=== PATIENT | female | born 1940 | race Caucasian/White ===

== ENCOUNTER → 2016-07-26 16:30 | Outpatient (CLI) | payer MEDICARE, OTHER ==
[2013-10-15 09:56] VITALS: BMI 31.5
[~2016-07-26 16:30] MED LIST: ALEVE220 MG PO; BAYER CHEWABLE81 MG PO; CO Q-10100 MG PO; COREG6.25 MG PO; FISH OIL 1,0001 CA1 PO; FLAXSEED OIL1000 MG PO; GARLIC1 CAP PO; MOBIC7.5 MG PO; MULTI-DAY VITAM1 TAB PO; PEPCID40 MG PO; PRAVACHOL40 MG PO
== END | disposition home or self-care (01) ==
LOC: D.MAMMO 09:30
DX: R92.8 Other abnormal and inconclusive findings on diagnostic imaging of breast (principal)

== ENCOUNTER 2017-09-30 10:58 | Outpatient (CLI) | payer MEDICARE, OTHER ==
[~2017-09-30] VITALS: Ht 167.6 cm; Wt 97.7 kg
--- NOTE | ~2017-09-30 | HEMODYNAMI ---
PATIENT:BRIANA LARA MEDICAL RECORD: [id number] : 40 LOCATION:D.CAT ADMISSION DATE: 09/30/17 Generatedon:09/30/201713:38 Patient name: BRIANA LARA Patient #: [id number] SSN: : 1940 Date of study: 09/30/2017 Page: Of Hemodynamic Procedure Report Patient Data Patient Demographics Procedure consent was obtained First Name: BRIANA Gender: Female Last Name: MARCO : 1940 [facility] Initial: SHAI Age: 76 year(s) Patient #: [id number] Race: Unknown Additional ID: [id number] Contact details Address: [address] [place] [address] DRIVE State: [place] City: [place] Zip code: [address] Past Medical History Allergies: No known allergies Admission Admission Data Admission Date: 09/30/2017 Admission Time: 10:58 Lab Results Lab Result Date: 09/30/2017 Lab Result Time: 0:00 Biochemistry Name Units Result Min Max BUN mg/dl 17 --(---*)-- 7 18 Creatinine mg/dl 0.9 --(-*--)-- 0.6 1.3 CBC Name Units Result Min Max Hemoglobin g/dl 14.1 --(*---)-- 13.5 17.5 Procedure Procedure Types Cath Procedure Diagnostic Procedure [facility] w/Coronaries Aortic Root Angiography Sedation Charges Moderate Sedation up to 15 minutes Procedure Description Procedure Date Procedure Date: 09/30/2017 Procedure Start Time: 13:14 Procedure End Time: 13:37 Procedure Staff Name Function Aníbal Akbar MD Performing Physician Juliette Nichols RT Monitor Blanco Thomas RN Nurse Ashish Galeano RT Scrub Devan Herman RN Lead Oxide Mill Tender Procedure Data Cath Procedure Fluoroscopy Diagnostic fluoroscopy Total fluoroscopy Time: 4 time: 4 min min Diagnostic fluoroscopy Total fluoroscopy dose: dose: 1120 mGy 1120 mGy Contrast Material Contrast Material Type Amount (ml) Isovue 300 134 Entry Location Entry Primary Successful Side Size Upsize Upsize Entry Closure Ramos ccessful Closure Location (Fr) 1 (Fr) 2 (Fr) Remarks Device Remarks Radial Right 6 Fr Mechanical artery Short Compression Estimated blood loss: 5 ml Diagnostic catheters Device Type Used For End Catheter Placement DIAGNOSTIC Hickman 110cm 5 Procedure Fr catheter ([id number]) DIAGNOSTIC Pigtail 5Fr Procedure catheter ([id number]) Procedure Complications No complications Procedure Medications Medication Administration Route Dosage 0.9% NaCl I.V. 100 ml/hr Oxygen etCO2 Nasal cannula 2 l/min Heparin Flush Bag added to field 2 bags (1000units/500ml NS) Lidocaine 2% added to field 20 Radial Cocktail added to field 1 syringe (Verapomil 2mg/Nitro 400mcg/Heparin 1500units) Versed I.V. 1 mg Fentanyl I.V. 50 mcg Radial Cocktail I.A. 1 syringe (Verapomil 2mg/Nitro 400mcg/Heparin 1500units) Hemodynamics Rest HGB: 14.1 (g/dl) Heart Rate: 47 (bpm) Pressure Samples Time Site Value (mmHg) Purpose Heart Use Rate(bpm) 13:18 LV 115/10,18 Snapshot 48 13:19 AO 84/42(57) Pullback 47 13:19 LV 128/1,17 Pullback 47 13:28 LV 128/10,24 Snapshot 51 13:28 AO 100/41(63) Pullback 50 13:28 LV 131/34,41 Pullback 50 Gradients Valve Time Site 1 Site 2 Mean SEP/DFP Peak To Heart Use (mmHg) (sec/min) Peak Rate (mmHg) (bpm) Aortic 13:19 LV AO 31 14 44 47 128/1,17 84/42(57) Aortic 13:28 LV AO 26 19 31 50 131/34,41 100/41(63) Calculations Valve P-P Mean Valve Index Valve Source Name Gradient Area Flow (cm2) Aortic 31 26 31 26 Snapshots Pre Cath Intra NCS Post Cath Vital Signs Time Heart Resp SPO2 etCO2 NIBP (mmHg) Rhythm Pain Sedation Rate (ipm) (%) (mmHg) Status Level (bpm) 13:02:29 54 27 94 0 145/67(105) NSR 0 (11) 10(A) , No pain 13:07:20 48 17 93 0 130/66(103) NSR 0 (11) 10(A) , No pain 13:12:46 49 19 94 38.5 124/68(99) NSR 0 (11) 10(A) , No pain 13:17:31 48 14 94 42.2 113/60(87) NSR 0 (11) 10(A) , No pain 13:22:13 46 15 94 34.7 98/52(75) NSR 0 (11) 9(A) , No pain 13:26:52 50 15 95 39.2 91/56(74) NSR 0 (11) 9(A) , No pain 13:32:07 49 13 93 39.2 111/54(83) NSR 0 (11) 10(A) , No pain 13:36:48 50 12 93 39.9 119/65(90) NSR 0 (11) 10(A) , No pain Medications Time Medication Route Dose Verified Delivered Reason Notes Effectiveness by by 13:01:29 0.9% NaCl I.V. 100 Blanco Blanco Per ml/hr William Thomas physician RN RN 13:01:42 Oxygen etCO2 2 l/min Blanco Blanco Per Nasal William Thomas physician cannula RN RN 13:02:18 Heparin Flush added 2 bags Blanco Blanco used for Bag to William Thomas procedure (1000units/500ml field RN RN NS) 13:02:35 Lidocaine 2% added 20ml Blanco Blanco for local to vial Lorigan William anesthetic RN RN 13:02:46 Radial Cocktail added 1 Blanco Blanco used for (Verapomil to syringe William Thomas procedure 2mg/Nitro RN RN 400mcg/Heparin 1500units) 13:09:18 Versed I.V. 1 mg Blanco Blanco for sedation William Thomas RN RN 13:09:27 Fentanyl I.V. 50 mcg Blanco Blanco for sedation William Thomas RN RN 13:17:03 Radial Cocktail I.A. 1 Blanco Aníbal for (Verapomil syringe William wong 2mg/Nitro RN 400mcg/Heparin 1500units) Procedure Log Time Note 12:23:35 Signed procedure consent form obtained from patient. 12:23:37 Time tracking: Regular hours (M-F 7:00 - 5:00) 12:23:43 Plan of Care:Hemodynamics will remain stable., Cardiac rhythm will remain stable., Comfort level will be maintained., Respiratory function will remain adequate., Patient/ family verbilizes understanding of procedure., Procedure tolerated without complication., Recovers from procedure without complications.. 12:24:36 H&P Date Dictated: 09/06/2017 Within 30 days and on chart., H&P Addendum completed by physician on day of procedure. (MUST COMPLETE FOR ALL OUTPATIENTS). 12:24:47 Patient allergic to No known allergies 12::32 Lab Result : BUN 17 mg/dl 12::32 Lab Result : Hemoglobin 14.1 g/dl 12::32 Lab Result : Creatinine 0.9 mg/dl 12:44:49 Devan Herman RN sent for patient. Start room use. 12:54:49 Patient received from Pre/Post Procedure Room to CCL 1 Alert and oriented. Tansferred to table in Supine position. 12:54:51 Warm blankets applied, and janine hugger turned on for patient comfort. 12:54:52 Correct patient and procedure confirmed by team. 12:54:53 ECG and BP/O2 sat monitors applied to patient. 12:56:03 Full Disclosure recording started 12:56:20 Pre-procedure instructions explained to patient. 12:56:20 Pre-op teaching completed and patient verbalized understanding. 12:56:23 Family in patients room. 12:56:25 Patient NPO since Midnight. 12:56:37 Is the patient allergic to Iodine/contrast media? No. 12:56:43 Is patient on blood thinner?No 12:58:20 Patient diabetic? No. 12:58:24 Previous problem with sedation/anesthesia? No ? 12:58:36 Snore? Yes 12:58:37 Sleep apnea? No 12:58:38 Deviated septum? No 12:58:39 Opens mouth fully? Yes 12:58:39 Sticks out tongue? Yes 12:58:42 Airway obstruction? No ? 12:58:45 Dentures? No ? 12:58:49 Pre procedure: right dorsailis pedis pulse 2+ Normal; easily identifiable; not easily obliterated 12:58:51 Modified Walter's test Ulnar < 7 seconds 12:58:54 Patient pain scale 0/10 ?. 12:59:01 IV patent on arrival in left forearm with 0.9% NaCl at O. 12:59:06 Lab results completed and on chart. 12:59:40 Right Radial area was prepped with chlora-prep and draped in sterile fashion 12:59:41 Alarms reviewed by R. N. 12:59:41 Sharps counted by scrub and verified by R.N. 13:01:17 Use device set Radial Dx or PCI 13:01:18 ACIST Syringe (39760) opened to sterile field. 13:01:19 Medline Cath Pack ([id number]) opened to sterile field. 13:01:19 Bag Decanter (2002S) opened to sterile field. 13:01:20 DIAGNOSTIC WIRE .035 260cm J wire (780853) opened to sterile field. 13:01:20 ACIST Hand Control (11092) opened to sterile field. 13:01:21 ACIST Manifold (34397) opened to sterile field. 13:01:22 MBrace Wrist Support ([id number]) opened to sterile field. 13:01:23 SHEATH 6Fr Prelude Radial ([id number]) opened to sterile field. 13:01:29 0.9% NaCl 100 ml/hr I.V. was administered by Blanco Thomas RN; Per physician; 13:01:32 Vital chart was started 13:01:35 Baseline sample Acquired. 13:01:41 Rhythm: sinus bradycardia 13:01:42 Oxygen 2 l/min etCO2 Nasal cannula was administered by Blanco Thomas RN; Per physician; 13:02:18 Heparin Flush Bag (1000units/500ml NS) 2 bags added to field was administered by Blanco Thomas RN; used for procedure; 13:02:35 Lidocaine 2% 20ml vial added to field was administered by Blanco Thomas RN; for local anesthetic; 13:02:46 Radial Cocktail (Verapomil 2mg/Nitro 400mcg/Heparin 1500units) 1 syringe added to field was administered by Blanco Thomas RN; used for procedure; 13:08:57 --------ALL STOP TIME OUT------ :08:57 Final Timeout: patient, procedure, and site verified with staff and physician. All members of the team are in agreement. 13:08:59 Right Radial & Right Groin site verified by team. 13:09:02 Physical assessment completed. ASA score P 2 - A patient with mild systemic disease as per Aníbal Akbar MD. 13:09:06 Sedation plan: IV Moderate Sedation Medication:Versed, Fentanyl 13:09:18 Versed 1 mg I.V. was administered by Blanco Thomas RN; for sedation; 13:09:27 Fentanyl 50 mcg I.V. was administered by Blanco Thomas RN; for sedation; 13:14:11 Procedure started. 13:14:51 Local anesthetic to right radial artery with Lidocaine 2% by Aníbal Akbar MD.INITIAL ACCESS ONLY 13:16:45 A 6 Fr Short sheath was inserted into the Right Radial artery 13:17:03 Radial Cocktail (Verapomil 2mg/Nitro 400mcg/Heparin 1500units) 1 syringe I.A. was administered by Aníbal Akbar MD; for vasodilation; 13:17:26 A DIAGNOSTIC Hickman 110cm 5 Fr catheter ([id number]) was advanced over the wire and used for Procedure. 13:18:15 LV gram done using [place] 13:18:18 Injector settings: Ml/sec: 7, Volume: 15, 13:19:05 LV hemodynamics recorded. 13:19:22 EF : 60 % 13:22:25 LCA angiography performed. 13:24:35 RCA angiography performed. 13:25:16 Catheter exchanged over wire. 13:25:33 A DIAGNOSTIC Pigtail 5Fr catheter ([id number]) was advanced over the wire and used for Procedure. 13:27:41 Aortic Root visualized 13:28:30 LV gram done using [place] 13:28:34 Injector settings: Ml/sec: 7, Volume: 15, 13:28:39 LV hemodynamics recorded. 13:29:17 EF : 60 % 13:29:21 Catheter removed. 13:30:18 Procedure ended.(Physican Out) 13:30:23 TR BAND Standard ([id number]) opened to sterile field. 13:30:43 Sheath removed intact; hemostasis achieved with Mechanical Compression to the Right Radial artery. 13:31:07 Fluoroscopy time 04.00 minutes. 13:31:12 Fluoroscopy dose: 1120 mGy 13:31:12 Flurop Dose total: 1120 13:31:15 Contrast amount:Isovue 300 134ml. 13:31:17 Sharps counted by scrub and verified by R.N. 13:33:09 TR band inflated with 9cc of air. 13:33:14 Post-procedure physical assessment completed. ASA score P 2 - A patient with mild systemic disease as per Aníbal Akbar MD. 13:33:17 Post procedure rhythm: sinus bradycardia 13:33:20 Estimated blood loss: 5 ml 13:33:22 Post procedure instruction explained to patient.Patient verbalizes understanding. 13:33:22 Patient needs reinforcement of post procedure teaching. 13:34:34 Procedure type changed to Cath procedure, Diagnostic procedure, LHC, LHC w/Coronaries, Aortic Root Angiography, Sedation Charges, Moderate Sedation up to 15 minutes 13:37:12 Procedure and supply charges have been captured, reviewed, submitted and are correct. 13:37:14 Procedure Complication : No complications 13:37:16 Vital chart was stopped 13:37:17 See physician's report for complete and final results. 13:37:23 Report given to Pre/Post Procedure Room. 13:37:26 Patient transfered to Pre/Post Procedure Room with Bed. 13:37:28 Procedure ended. 13:37:28 Full Disclosure recording stopped 13:37:31 End room use (Document Last) Device Usage Item Name Manufacture Quantity Catalog Number Hospital Part Current M inimal Lot# / Charge Number Stock Stock Serial# Code ACIST Syringe Acist 1 30841 692390 686229 286284 2 0 (53287) Medical [employer] Inc Medline Cath Cardinal 1 [id number] 599986 19066 824463 5 [facility] ([id number]) Bag Decanter Microtek 1 332553 69943 050592 5 () Medical Inc. DIAGNOSTIC WIRE St Robert 1 064472 755210 424725 381992 3 0 .035 260cm J wire (229206) ACIST Hand Acist 1 57514 875550 377849 758939 5 Control (73367) [employer] Inc ACIST Manifold Acist 1 27418 432981 640597 707959 5 (14784) Medical Systems Inc MBrace Wrist Advanced 1 140-0250-00 283229 72949 084088 5 Support Vascular ([id number]) Dynamics SHEATH 6Fr Merit 1 [id number] 867038 558598 870505 5 Prelude Radial Medical ([id number]) DIAGNOSTIC Terumo 1 94-1610 921204 239680 514496 5 Hickman 110cm 5 Fr catheter (682368) DIAGNOSTIC Cardinal 1 [id number] 868164 084996 741083 5 Pigtail 5Fr Health catheter (506378H) TR BAND Terumo 1 [id number] 217940 411936 768576 4 0 Standard ([id number]) Signature Audit [place] Stage Time Signature Unsigned Intra-Procedure 09/30/2017 Juliette Nichols 1:38:02 PM RT(R) Signatures Monitor : Juliette Nichols Signature : RT Date : Time : [address] [address]
[2017-09-30] MEDS ORDERED: ZANTAC150 MG PO (11:09)
[2017-09-30] MEDS ORDERED: LOVASTATIN20 MG PO (11:10)
[2017-09-30 11:27] VITALS: BP 140/55; Ht 167.6 cm; Wt 97.7 kg
[2017-09-30 11:53] LABS: BASOPHILS 0 % (0-2); EOSINOPHILS 3.1 % (0-7); HEMATOCRIT 42.1 % (36.0-48.0); HEMOGLOBIN 14.1 g/dL (12-16); IMMATURE GRANULOCYTES 0.2 % (0-5); LYMPHOCYTES 34.2 % (15-50); MCH 32.6 pg (26.0-34.0); MCHC 33.5 g/dL (31.0-37.0); MCV 97.5 fL (80.0-100.0); MEAN PLATELET VOLUME 9.9 fL (7.4-10.4); MONOCYTES 9.5 % (2-11); RBC 4.32 10x6/uL (4.00-5.40); RDW 13.3 % (11.5-14.5); WBC 5.6 10x3/uL (4.8-10.8)
[2017-09-30 11:57] LABS: ANION GAP 10.9 mmol/L (8-16); CALCIUM 9.1 mg/dL (8.5-10.1); CARBON DIOXIDE 28.5 mmol/L (21.0-32.0); CREATININE - SERUM 0.9 mg/dL (0.6-1.3); POTASSIUM - SERUM 4.4 mmol/L (3.5-5.1)
[2017-09-30 12:03] LABS: PLATELET COUNT 148 10x3/uL (130-400)
[2017-10-28] MEDS ORDERED: PRAVACHOL40 MG PO (14:55)
[2017-10-28] MEDS ORDERED: VITAMIN D31000 UNIT PO (14:56)
== END 2017-09-30 16:30 | disposition home or self-care (01) ==
LOC: D.CATH 10:58
PROVIDERS: Internal Medicine Cardiovascular Disease
DX: I25.119 Atherosclerotic heart disease of native coronary artery with unspecified angina pectoris (principal); I35.2 Nonrheumatic aortic (valve) stenosis with insufficiency; Z01.812 Encounter for preprocedural laboratory examination

== ENCOUNTER → 2017-10-23 08:35 | Outpatient (CLI) | payer MEDICARE, OTHER ==
[2017-09-30 11:27] VITALS: BMI 34.7
--- NOTE | ~2017-10-23 | EC ---
PATIENT:BRIANA LARA DATE OF SERVICE: 10/23/17 SEX: F MEDICAL RECORD: [id number] DATE OF : 40 LOCATION:D.[facility] AGE OF PATIENT: 76 ADMISSION DATE: 10/23/17 REFERRING PHYSICIAN: INTERPRETING PHYSICIAN: LIV SALCEDO MD ECHOCARDIOGRAM REPORT ECHO CHARGES 4 ECHO COMPLETE Date: 10/23 CLINICAL DIAGNOSIS: /HTN ECHOCARDIOGRAPHIC MEASUREMENTS (adult normal given) AC root (d.<3.7cm) 3.0 cm LV Septum d (<1.2 cm> 1.4 cm Valve Excursion 0.9 cm LV Septum (systole) 2.0 cm Left Atria (s.<4.0cm> 3.9 cm LVPW d(<1.2cm) 1.3 cm RV (d.<2.3cm) 2.8 cm LVPW (sytole) 2.2 cm LV diastole(<5.6CM) 5.1 cm MV E-F(>70mm/sec) cm LV systole 2.6 cm LVOT Diameter 1.6 cm MV exc.(>10mm) cm Est.ejection fraction (50-75%) % DOPPLER: LVIT cm/sec A 87.0 cm/sec E 148 cm/sec LA cm/sec RVSP 38.3 mmHg LVOT 172 cm/sec AOP1/2T m/s Asc. Ao 346 cm/sec RVOT 80.0 cm/sec RA cm/sec PA 94.0 cm/sec AV Gradient Peak 48.0 mmHg AV Mean 27.0 mmHg AV Area 1.0 cm MV Gradient Peak 12.0 mmHg MV Mean 3.2 mmHg MV Area cm COMMENTS: Forgeman Helper: Robert SKINNER Full Stack Java Developer: Jose Pagan TAPE# PACS Pericardial Effusion N DATE OF SERVICE: 10/23/2017 PROCEDURE: Echocardiogram. FINDINGS: 1. Left ventricular chamber size is within normal limits. Left ventricular systolic function is normal. Overall ejection fraction estimated at 65%. 2. Left atrium, right atrium, and right ventricle chamber sizes are within normal limits. 3. Valvular structures: Aortic valve demonstrates moderate calcific aortic ECHOCARDIOGRAM REPORT [id number] BRIANA LARA stenosis, valve area calculates 1.0 cm-sq with a gradient of 48 mm across the valve. The remaining valvular structures have normal structure and motion. 4. Doppler interrogation elsewise reveals mild aortic insufficiency, mild mitral regurgitation, trace tricuspid regurgitation, no other valvular insufficiency or stenosis and pulmonary systolic pressure is estimated 38 mmHg. 5. No evidence of pericardial effusion or left ventricular thrombus. TRANSINT:[id number] Voice Confirmation ID: [id number] DOCUMENT ID: [id number] LIV SALCEDO MD at 1224 CC: [id number] DICTATION DATE: 10/23/17 1158 CALL TAKER: 10/23/17 1208 DEP CLI 10/23/17 [address] [place] [address]
[~2017-10-23 08:35] MED LIST changes: +ASPIRIN81 MG PO; +COLACE100 MG PO; +CORDARONE200 MG PO; +K-DUR20 MEQ PO; +LASIX40 MG PO; +LOVASTATIN20 MG PO; +PERCOCET 5-3251 TAB PO; +VITAMIN D31000 UNIT PO; +ZANTAC150 MG PO
== END | disposition home or self-care (01) ==
LOC: D.ECHO 10-22 10:00
DX: I35.0 Nonrheumatic aortic (valve) stenosis (principal); I10 Essential (primary) hypertension

== ENCOUNTER → 2017-10-28 08:00 | Outpatient (CLI) | payer MEDICARE, OTHER ==
--- NOTE | ~2017-10-28 | HP ---
PATIENT: BRIANA LARA MEDICAL RECORD: [id number] ACCOUNT: [id number] LOCATION:[facility] : 40 ADMISSION DATE: 10/30/17 HISTORY AND PHYSICAL EXAMINATION NameBRIANA LARA (76yo, F) ID# [id number]. Date/Time10/22/2017 01:05DDDKV08/24/1941Service Dept.NP_[facility] ClinicProviderROBSON DAVID MDInsuranceMed Primary: [place] Insurance # : [id number] Referring Provider Name : RADHA FAITH Employer Name : RETIRED [employer] Secondary: [employer] (MEDICARE SUPPLEMENT) Insurance # : [id number] Policy/Group # : [id number] Referring Provider Name : RADHA FAITH Employer Name : RETIRED Prescription: DSTPSDIR - Member is eligible. Chief Complaint Coronary artery disease eval CAD/ Patient's Care Team Referring Provider (): RADHA FAITH: [address] [place] [phone], , Clinical Nutritionist: HEATH AKBAR MD: [address] [place] [phone], , Patient's Pharmacies [facility] ([facility]): [address] [place] [phone], , Vitals BP:187/ sitting L arm 10/22/2017 01:59 pmBP Cuff Size:adult 10/22/2017 01:59 pmHR:60,reg 10/22/2017 02:00 pmHt:5 ft 6 in 10/22/2017 02:00 pmWt:205 lbs 10/22/2017 02:00 pmNotes:has had know CAD with stenting, has followed CAD and valve problems with Dr Akbar. In the recent past months has developed increasing SOB which led to this referral 10/22/2017 02:01 pmBMI:33.1 10/22/2017 02:00 pmAllergies Reviewed Allergies NKDAMedications Reviewed Medications avvejqj56/17/18 enteredErika Watkinscarvedilol 6.25 mg ahfbik54/26/18 filledArgChromasun Systemslovastatin 20 mg andlbt22/26/18 filledArgChromasun SystemsraNITIdine 150 mg /29/18 filledArgChromasun SystemsProblems Reviewed Problems Hyperlipidemia Aortic valve disorder Hypertensive disorder Coronary arteriosclerosis Family History Reviewed Family History Father- Coronary arteriosclerosisSocial History Reviewed Social History Cardiology and General Family history of heart disease?: Y Smoking Status: Never smoker High Cholesterol: Y HISTORY AND PHYSICAL [id number] BRIANA LARA High blood pressure: Y Diabetes: N Surgical History Reviewed Surgical History [facility] 2013 STENT LAD/RCA 2010 SHOP TECH History (not configured) Past Medical History Reviewed Past Medical History Angina: Y Chest Pain: Y Coronary Artery Disease: Y Heart Murmur: Y Heart stents: Y High Blood Pressure: Y Hyperlipidemia: Y Hypertension: Y Shortness of Breath: Y Valve disease: Y - AORTIC STENOSIS Documents for Discussion N/A Screening None recorded. HPI Dyspnea Reported by patient. Quality: dyspnea; can't catch breath; has to stop to catch breath during activites she normally hasn't been SOB with Severity: moderate Onset/Timing: daily Context: with activity Alleviating Factors: rest Aggravating Factors: activity Associated Symptoms: no chest pain; no palpitations; no orthopnea; no PND; no fever; no chills; no wheezing; no dietary indiscretion; no sputum production; no hemoptysis; no weight gain; no dyspepsia exertional dyspnea, mild aortic stenosis denies angina syncope or near syncope, denies palpitations Catheter severe mid LAD, moderate to severe ostial LAD, small distal left posterior lateral branch and moderate right coronary ROS Additionally reports: as reviewed in the chart with the patient ROS as noted in the HPI Physical Exam Patient is a 76-year-old female. Constitutional: General Appearance well nourished and developed and healthy-appearing. Level of Distress NAD. Ambulation ambulating normally. Ears, Nose, Throat: Ears grossly normal hearing. Cardiovascular: Apical Impulse not displaced or no thrill. Heart Auscultation no murmurs, rubs, or gallops and RRR. Arterial Pulses 2+ bilateral, no abdominal aorta bruits, and dorsalis pedis 2+ bilateral. Edema no edema; bilateral superficial HISTORY AND PHYSICAL [id number] BRIANA LARA STRONG varicose veins. Lungs: Repiratory Effort no dyspnea. Percussion no hyperresonance or dullness or flatness. Auscultation no wheezing, rhonchi, or rales / crackles and breathing sounds normal and good air movement. Abdomen: Bowl Sounds normal. Inspection and Palpation no tenderness, guarding, or masses and soft and non-distended. Liver non-tender and no hepatomegaly. Spleen non-tender and no splenomegaly. Musculoskeletal System: Gait And Stance normal gait and stance. Digits and Nails normal nails and no cyanosis. Joints, Bones, and Muscles normal strength and movement of all extremities. Neurologic: Cranial Nerves grossly intact. Sensation grossly intact. Lymph Nodes: Lymph Nodes no cervical LAD or supraclavicular LAD. Eyes: Lids and Conjunctivae no discharge or pallor and non-injected. Pupils PERRLA. Cornea grossly intact. EOM EOMI. Lens clear. Sclera non-icteric. Neck: Neck no masses, enlarged lymph nodes, or carotid bruits and supple and trachea midline. Thyroid no enlargement or nodules and non-tender. Skin: Inspection and Palpation no rash, lesions, ulcers, or jaundice. Assessment / Plan 1. Coronary arteriosclerosis I25.10: Atherosclerotic heart disease of [place] coronary artery without angina pectoris 2. Aortic valve disorder I35.9: Nonrheumatic aortic valve disorder, unspecified HEART VALVE DISEASE: CARE INSTRUCTIONS Patient Instructions echo pending tomorrow, will review and call patient Discussion Notes we discussed the rationale, risks, and benefits, of coronary bypass graft in the face of increasing symptoms. We also discussed the likelihood that the patient can be free from aortic valve intervention with only mild stenosis by gradient, and even later if she had to have aortic valve surgery it could be transient catheter. Patient states understanding and gives consent ROBSON DAVID MD at 1411 CC: [id number] DICTATION DATE: 10/22/17 1330 [employer]: STACEY 10/25/17 1539 PRE IN [facility] [address] [place] [address]
[2017-10-28 16:26] LABS: APPEARANCE CLEAR (CLEAR); BILIRUBIN NEGATIVE (NEGATIVE); COLOR YELLOW (YELLOW); GLUCOSE NEGATIVE (NEGATIVE); KETONE NEGATIVE (NEGATIVE); NITRITE NEGATIVE (NEGATIVE); PROTEIN NEGATIVE (NEGATIVE); SPECIFIC GRAVITY 1.015 (1.005-1.020); UROBILINOGEN NORMAL (NORMAL)
[2017-10-28 16:28] LABS: AMORPHOUS SEDIMENT <1+ /lpf (NONE SEEN); BACTERIA MODERATE /hpf (NONE SEEN); MUCUS <1+ /lpf (NONE SEEN); RED CELLS - URINE 0-5 /hpf (0-5); WHITE CELLS - URINE 0-5 /hpf (0-5)
[2017-10-28 16:48] LABS: BASOPHILS 0.3 % (0-2); EOSINOPHILS 7.1 % (0-7); HEMATOCRIT 40.6 % (36.0-48.0); HEMOGLOBIN 13.6 g/dL (12-16); IMMATURE GRANULOCYTES 0.1 % (0-5); LYMPHOCYTES 28.8 % (15-50); MCH 32.6 pg (26.0-34.0); MCHC 33.5 g/dL (31.0-37.0); MCV 97.4 fL (80.0-100.0); MEAN PLATELET VOLUME 9.9 fL (7.4-10.4); MONOCYTES 10.8 % (2-11); NEUTROPHILS 52.9 % (40-80); PLATELET COUNT 137 10x3/uL (130-400); RBC 4.17 10x6/uL (4.00-5.40); RDW 13.6 % (11.5-14.5); WBC 6.9 10x3/uL (4.8-10.8)
[2017-10-28 17:05] LABS: APTT 41.1 SECONDS (22.8-39.4); INR 1.22 (0.85-1.17); PROTIME 14.9 SECONDS (11.6-15.0)
[2017-10-28 17:27] LABS: ALBUMIN 3.3 g/dL (3.4-5.0); ANION GAP 10.7 mmol/L (8-16); BILIRUBIN - TOTAL 0.37 mg/dL (0.2-1.3); CALCIUM 8.8 mg/dL (8.5-10.1); CARBON DIOXIDE 30.7 mmol/L (21.0-32.0); CREATININE - SERUM 0.9 mg/dL (0.6-1.3); PHOSPHOROUS 3.7 mg/dL (2.5-4.9); POTASSIUM - SERUM 4.4 mmol/L (3.5-5.1); PROTEIN - SERUM 7.6 g/dL (6.4-8.2); T4 THYROXIN - FREE 1.01 ng/dL (0.76-1.46); THYROID STIMULATING HORMONE 3.42 uIU/mL (0.36-3.74); URIC ACID 6.1 mg/dL (2.6-7.2)
[2017-12-05 06:28] VITALS: BMI 34.4
== END | disposition home or self-care (01) ==
LOC: D.OPS 10-29 08:00 → D.SDCHOLD 16:00 → EDSTATUS 10-30 16:00 → D.SDCHOLD 10-30 16:00
PROVIDERS: Thoracic Surgery (Cardiothoracic Vascular Surgery)
DX: I25.10 Atherosclerotic heart disease of native coronary artery without angina pectoris (principal); Z01.810 Encounter for preprocedural cardiovascular examination; Z01.811 Encounter for preprocedural respiratory examination; Z01.812 Encounter for preprocedural laboratory examination; I10 Essential (primary) hypertension; E78.5 Hyperlipidemia, unspecified

== ENCOUNTER 2017-10-29 11:58 | Outpatient (CLI) | payer MEDICARE, OTHER ==
[~2017-10-29] VITALS: Ht 167.6 cm; Wt 94.5 kg
[~2017-10-29 11:58] MED LIST changes: -ASPIRIN81 MG PO; -COLACE100 MG PO; -CORDARONE200 MG PO; -K-DUR20 MEQ PO; -LASIX40 MG PO; -PERCOCET 5-3251 TAB PO
[2017-10-29 13:32] VITALS: BP 137/60; Ht 167.6 cm; Wt 94.5 kg
[2017-10-29 14:33] LABS: APPEARANCE HAZY (CLEAR); BILIRUBIN NEGATIVE (NEGATIVE); COLOR YELLOW (YELLOW); GLUCOSE NEGATIVE (NEGATIVE); KETONE NEGATIVE (NEGATIVE); NITRITE NEGATIVE (NEGATIVE); PROTEIN NEGATIVE (NEGATIVE); UROBILINOGEN NORMAL (NORMAL)
[2017-10-29 14:34] LABS: BACTERIA MODERATE /hpf (NONE SEEN); EPITHELIAL CELLS 0-5 /hpf (0-5); MUCUS <1+ /lpf (NONE SEEN)
== END 2017-10-29 13:40 | disposition home or self-care (01) ==
LOC: D.OPS 11:58
PROVIDERS: Thoracic Surgery (Cardiothoracic Vascular Surgery)
DX: N39.0 Urinary tract infection, site not specified (principal); Z01.812 Encounter for preprocedural laboratory examination

== ENCOUNTER 2017-11-08 05:00 | Inpatient (IN) | payer MEDICARE, OTHER ==
[2017-11-06 13:23] LABS: BASOPHILS 0.3 % (0-2); EOSINOPHILS 5.4 % (0-7); HEMATOCRIT 40.8 % (36.0-48.0); HEMOGLOBIN 13.6 g/dL (12-16); IMMATURE GRANULOCYTES 0.1 % (0-5); LYMPHOCYTES 32.2 % (15-50); MCH 32.6 pg (26.0-34.0); MCHC 33.3 g/dL (31.0-37.0); MCV 97.8 fL (80.0-100.0); MEAN PLATELET VOLUME 9.8 fL (7.4-10.4); MONOCYTES 9.8 % (2-11); NEUTROPHILS 52.2 % (40-80); RBC 4.17 10x6/uL (4.00-5.40); RDW 13.8 % (11.5-14.5); WBC 7.1 10x3/uL (4.8-10.8)
[2017-11-06 13:31] LABS: PLATELET COUNT 167 10x3/uL (130-400)
[2017-11-06 13:38] LABS: APTT 30.8 SECONDS (22.8-39.4); INR 1.12 (0.85-1.17)
[2017-11-06 13:42] LABS: ALBUMIN 3.4 g/dL (3.4-5.0); ANION GAP 10.4 mmol/L (8-16); BILIRUBIN - TOTAL 0.41 mg/dL (0.2-1.3); CALCIUM 9.2 mg/dL (8.5-10.1); CARBON DIOXIDE 30.1 mmol/L (21.0-32.0); CREATININE - SERUM 1.3 mg/dL (0.6-1.3); PHOSPHOROUS 3.5 mg/dL (2.5-4.9); POTASSIUM - SERUM 5.5 mmol/L (3.5-5.1); PROTEIN - SERUM 7.9 g/dL (6.4-8.2); T4 THYROXIN - FREE 0.92 ng/dL (0.76-1.46); THYROID STIMULATING HORMONE 3.36 uIU/mL (0.36-3.74); URIC ACID 6.3 mg/dL (2.6-7.2)
[2017-11-06 13:46] LABS: APPEARANCE CLEAR (CLEAR); BACTERIA FEW /hpf (NONE SEEN); BILIRUBIN NEGATIVE (NEGATIVE); COLOR YELLOW (YELLOW); EPITHELIAL CELLS OCC /hpf (0-5); GLUCOSE NEGATIVE (NEGATIVE); KETONE NEGATIVE (NEGATIVE); NITRITE NEGATIVE (NEGATIVE); PROTEIN NEGATIVE (NEGATIVE); RED CELLS - URINE 0-5 /hpf (0-5); SPECIFIC GRAVITY 1.015 (1.005-1.020); UROBILINOGEN NORMAL (NORMAL); WHITE CELLS - URINE RARE /hpf (0-5)
[2017-11-08] VITALS (38 sets, daily range): BP systolic 98–154; BP diastolic 44–80; BMI 35.3
[~2017-11-08] VITALS: Ht 167.6 cm; Wt 101.1 kg
--- NOTE | ~2017-11-08 | OP ---
PATIENT NAME: BRIANA LARA MEDICAL RECORD: [id number] :40 LOCATION:D.CVI D.CV01 ADMISSION DATE:11/08/17 SURGEON: LEO DAVID MD DATE OF OPERATION: 11/08/2017 SURGEON: Leo David MD ASSISTANTS: LILIA Dixon MD and RACHEAL Owens OPERATION PERFORMED: 1. Aortic valve replacement (21 mm pericardial [place] bioprosthesis). 2. Coronary artery bypass graft times 2 (left internal mammary to LAD, reverse saphenous vein graft from aorta to posterior descending artery). PREOPERATIVE DIAGNOSES: Aortic stenosis and coronary artery disease. POSTOPERATIVE DIAGNOSES: Aortic stenosis and coronary artery disease. ANESTHESIA: General endotracheal anesthesia. ESTIMATED BLOOD LOSS: Total cardiopulmonary bypass with Cell Saver retransfusion. COMPLICATIONS: None. SPECIMENS: Aortic valve leaflets. CONDITION: Stable. DISPOSITION: CV ICU. OPERATIVE FINDINGS: 1. Transesophageal echocardiography confirmed aortic valve calcification with trace mitral regurgitation. Good contractility with left ventricular hypertrophy. Postoperatively, the valve had no aortic insufficiency or perivalvular leak. 2. Reasonable quality saphenous vein from the right upper calf. 3. Good quality left internal mammary artery. The LAD was a severely diseased 1.5 mm vessel. 4. Posterior descending artery was a 1.5 mm vessel. 5. Aortic valve leaflets were severely calcified, particularly the noncoronary cusp with calcification into the annulus, but the valve seated well. There was no subvalvular obstruction after placement. 6. De-airing with use of transesophageal echocardiography. OPERATIVE INDICATION: Aortic stenosis and coronary artery disease. DESCRIPTION OF PROCEDURE: The patient was brought to the operating suite. General anesthesia was obtained. The patient was prepped and draped. The greater saphenous vein was harvested in the right lower extremity using bridging incision. Side branches were clipped. Vessel was ligated proximally and distally and removed. Leg was closed in 2 layers and a drain was placed. Median sternotomy incision was made. Subcutaneous tissue was divided by electrocautery. The sternum was divided with a saw. Left hemisternum was OPERATIVE REPORT [id number] BRIANA LARA elevated. The left pleural cavity was entered. Left internal mammary artery and vein was taken as a pedicle graft. Sternal retractor was placed. Pericardium was opened. Heparin was given. Air was cannulated. Dual stage venous cannula was inserted. Retrograde cardioplegia cannula inserted. The internal mammary was clipped distally and made ready for anastomosis. The patient was placed on cardiopulmonary bypass and cooled. Antegrade cardioplegia cannula was inserted. Crossclamp was placed. Cardioplegia was given antegrade and retrograde and this was repeated at 15 to 20 minute intervals including down the completed vein graft. Distal anastomoses were performed in standard technique, internal mammary distal anastomosis after the aortic valve. A transverse aortotomy was performed. Aortic valve visualized, debrided. Calcium removed from the annulus and then pledgeted valve sutures placed from ventricular to aortic side through the valve sewing ring. After the valve had been sized to 21 mm, the valve carefully lowered into place and the sutures tied. Inspecting through the valve, there was a subvalvular leak, valve seated well. Aortotomy was closed. The patient was rewarmed, single proximal anastomotic site and then the distal left internal mammary artery graft. The patient was in steep Trendelenburg position. Left ventricular apex was de-aired. Then, the patient was crossclamped removed and fully rewarmed, resumed a spontaneous rhythm, complete de-airing with REMINGTON and the patient was weaned from cardiopulmonary bypass and was stable. The patient was decannulated. The cannula sites were oversewn. Protamine was given. Thorough irrigation was undertaken. A drain was placed in the mediastinum and left pleural cavity. Atrial and ventricular pacing wires were placed. Left chest evacuated and irrigated. The internal mammary harvest site was inspected for bleeding, was hemostatic. Sternum was closed with wires. Fascia was closed. Subcutaneous tissue was closed. Skin was closed. Dermabond was placed. The needle and sponge counts were reported as correct and the patient was taken to ICU in stable condition. TRANSINT:[id number] Voice Confirmation ID: [id number] DOCUMENT ID: [id number] LEO DAVID MD at 1958 CC: [id number] DICTATION DATE: 11/08/17 1514 ELECTRICIAN'S HELPER: 11/08/17 1559 ADM IN [facility] [address] [id number]
--- NOTE | ~2017-11-08 | TEE ---
PATIENT:BRIANA LARA MEDICAL RECORD: [id number] LOCATION:[place] [address] AGE OF PATIENT: 76 ADMISSION DATE: 11/08/17 SEX: F REFERRING PHYSICIAN: INTERPRETING PHYSICIAN: LIV SALCEDO MD TRANSESOPHAGEAL ECHOCARDIOGRAM Date: 11/08/17 REMINGTON CHARGE Y INDICATIONS: CABG/AVR PREMEDICATIONS: PATIENT'S RESPONSE PROCEDURE DOPPLER MEASUREMENTS: LVIT LA PA RA LVOT RVOT Asc. Ao AV Gradient Peak AV Mean AV Area 0.7 MV Gradient Peak MV Mean MV Area INTERPRETATION: Doppler: 2-D: COLOR FLOW DOPPLER NORMAL SALINE STUDY: MISCELLANOUS: DIAGNOSIS: PLAN: Shear Grinder Operator:Bisi Akbar Underwear Welter: Robert SKINNER COMMENTS: JOANN PATIENT DATE OF SERVICE: 11/08/2017 PROCEDURE: Transesophageal echo evaluation of valvular structures during bypass surgery and aortic valve replacement. FINDINGS: 1. Left ventricular chamber size is within normal limits. Left ventricular systolic function is normal. Overall ejection fraction estimated at 55% to 60%. 2. Left atrium, right atrium, and right ventricle chamber sizes are mildly TRANSESOPHAGEAL ECHOCARDIOGRAM REPORT [id number] BRIANA LARA dilated. 3. Valvular structures: Aortic valve has moderate to severe aortic stenosis. This is not a new finding. The patient is scheduled for valve replacement. The remaining valvular structures have normal structure and motion. 4. Doppler interrogation elsewise reveals mild aortic insufficiency, mild mitral regurgitation, mild tricuspid regurgitation, no other valvular insufficiency or stenosis. 5. No evidence of pericardial effusion or left ventricular thrombus. TRANSINT:[id number] Voice Confirmation ID: [id number] DOCUMENT ID: [id number] at 1834 CC: [id number] DICTATION DATE: 11/08/17 1154 NURSE MANAGER: 11/08/17 1211 ADM IN [place] [id number] [place] [address]
[2017-11-09] VITALS (68 sets, daily range): BP systolic 106–157; BP diastolic 48–67; Ht 167.6 cm; Wt 101.1 kg
[2017-11-09 06:31] LABS: HEMATOCRIT 37.4 % (36.0-48.0); HEMOGLOBIN 12.4 g/dL (12-16); MCH 32.5 pg (26.0-34.0); MCHC 33.2 g/dL (31.0-37.0); MCV 98.2 fL (80.0-100.0); MEAN PLATELET VOLUME 10.3 fL (7.4-10.4); RBC 3.81 10x6/uL (4.00-5.40); RDW 14.3 % (11.5-14.5)
[2017-11-09 06:48] LABS: ANION GAP 11.4 mmol/L (8-16); BILIRUBIN - TOTAL 0.62 mg/dL (0.2-1.3); CALCIUM 7.7 mg/dL (8.5-10.1); CARBON DIOXIDE 25.1 mmol/L (21.0-32.0); CREATININE - SERUM 1.2 mg/dL (0.6-1.3); POTASSIUM - SERUM 4.5 mmol/L (3.5-5.1); PROTEIN - SERUM 6.5 g/dL (6.4-8.2)
[2017-11-10] VITALS (24 sets, daily range): BP systolic 114–148; BP diastolic 47–81
[2017-11-10 06:35] LABS: ALBUMIN 2.5 g/dL (3.4-5.0); ANION GAP 8.5 mmol/L (8-16); BILIRUBIN - TOTAL 0.55 mg/dL (0.2-1.3); CALCIUM 7.3 mg/dL (8.5-10.1); CARBON DIOXIDE 29.7 mmol/L (21.0-32.0); CREATININE - SERUM 0.9 mg/dL (0.6-1.3); POTASSIUM - SERUM 4.2 mmol/L (3.5-5.1); PROTEIN - SERUM 5.8 g/dL (6.4-8.2)
[2017-11-10 06:45] LABS: HEMATOCRIT 32.2 % (36.0-48.0); HEMOGLOBIN 10.5 g/dL (12-16); MCHC 32.6 g/dL (31.0-37.0); MCV 98.2 fL (80.0-100.0); MEAN PLATELET VOLUME 10.4 fL (7.4-10.4); PLATELET COUNT 70 10x3/uL (130-400); RBC 3.28 10x6/uL (4.00-5.40); RDW 14.5 % (11.5-14.5)
[2017-11-10 07:21] LABS: PLATELET ESTIMATE DECREASED
[2017-11-11] VITALS (24 sets, daily range): BP systolic 90–127; BP diastolic 43–76
[2017-11-11 07:06] LABS: ALBUMIN 2.4 g/dL (3.4-5.0); ANION GAP 10.4 mmol/L (8-16); BILIRUBIN - TOTAL 0.56 mg/dL (0.2-1.3); CALCIUM 7.7 mg/dL (8.5-10.1); CARBON DIOXIDE 27.1 mmol/L (21.0-32.0); CREATININE - SERUM 0.8 mg/dL (0.6-1.3); POTASSIUM - SERUM 4.5 mmol/L (3.5-5.1)
[2017-11-11 07:10] LABS: HEMOGLOBIN 10.1 g/dL (12-16); MCH 32.2 pg (26.0-34.0); MCHC 32.6 g/dL (31.0-37.0); MCV 98.7 fL (80.0-100.0); MEAN PLATELET VOLUME 10.4 fL (7.4-10.4); RBC 3.14 10x6/uL (4.00-5.40); RDW 14.5 % (11.5-14.5); WBC 11.5 10x3/uL (4.8-10.8)
[2017-11-12] VITALS (24 sets, daily range): BP systolic 96–131; BP diastolic 30–61
[2017-11-12 06:23] LABS: HEMOGLOBIN 9.9 g/dL (12-16); MCH 32.5 pg (26.0-34.0); MCV 98.4 fL (80.0-100.0); MEAN PLATELET VOLUME 10.2 fL (7.4-10.4); RBC 3.05 10x6/uL (4.00-5.40); RDW 14.4 % (11.5-14.5); WBC 11.1 10x3/uL (4.8-10.8)
[2017-11-12 06:42] LABS: ALBUMIN 2.4 g/dL (3.4-5.0); ANION GAP 8.2 mmol/L (8-16); BILIRUBIN - TOTAL 0.53 mg/dL (0.2-1.3); CARBON DIOXIDE 27.3 mmol/L (21.0-32.0); POTASSIUM - SERUM 4.5 mmol/L (3.5-5.1); PROTEIN - SERUM 6.2 g/dL (6.4-8.2)
[2017-11-13] VITALS (24 sets, daily range): BP systolic 104–141; BP diastolic 37–70
[2017-11-13 06:37] LABS: HEMATOCRIT 31.5 % (36.0-48.0); HEMOGLOBIN 10.1 g/dL (12-16); MCH 31.7 pg (26.0-34.0); MCHC 32.1 g/dL (31.0-37.0); MCV 98.7 fL (80.0-100.0); MEAN PLATELET VOLUME 9.7 fL (7.4-10.4); RBC 3.19 10x6/uL (4.00-5.40); RDW 14.3 % (11.5-14.5); WBC 9.7 10x3/uL (4.8-10.8)
[2017-11-13 07:02] LABS: ALBUMIN 2.5 g/dL (3.4-5.0); ANION GAP 9.6 mmol/L (8-16); BILIRUBIN - TOTAL 0.5 mg/dL (0.2-1.3); CALCIUM 8.1 mg/dL (8.5-10.1); CREATININE - SERUM 1.1 mg/dL (0.6-1.3); POTASSIUM - SERUM 4.6 mmol/L (3.5-5.1); PROTEIN - SERUM 6.8 g/dL (6.4-8.2)
[2017-11-14] VITALS (24 sets, daily range): BP systolic 96–142; BP diastolic 33–68
[2017-11-15] VITALS (23 sets, daily range): BP systolic 83–141; BP diastolic 42–83
[2017-11-15 05:48] LABS: HEMATOCRIT 30.6 % (36.0-48.0); HEMOGLOBIN 9.9 g/dL (12-16); MCH 32.1 pg (26.0-34.0); MCHC 32.4 g/dL (31.0-37.0); MCV 99.4 fL (80.0-100.0); MEAN PLATELET VOLUME 9.6 fL (7.4-10.4); RBC 3.08 10x6/uL (4.00-5.40); RDW 14.5 % (11.5-14.5); WBC 9.6 10x3/uL (4.8-10.8)
[2017-11-15 06:16] LABS: ALBUMIN 2.5 g/dL (3.4-5.0); ANION GAP 8.9 mmol/L (8-16); BILIRUBIN - TOTAL 0.54 mg/dL (0.2-1.3); CALCIUM 8.5 mg/dL (8.5-10.1); CARBON DIOXIDE 28.5 mmol/L (21.0-32.0); CREATININE - SERUM 1.1 mg/dL (0.6-1.3); POTASSIUM - SERUM 4.4 mmol/L (3.5-5.1); PROTEIN - SERUM 6.6 g/dL (6.4-8.2)
[2017-11-16] VITALS (23 sets, daily range): BP systolic 94–126; BP diastolic 44–66
[2017-11-16 06:06] LABS: HEMATOCRIT 31.4 % (36.0-48.0); HEMOGLOBIN 10.2 g/dL (12-16); MCH 31.8 pg (26.0-34.0); MCHC 32.5 g/dL (31.0-37.0); MCV 97.8 fL (80.0-100.0); MEAN PLATELET VOLUME 9.5 fL (7.4-10.4); RBC 3.21 10x6/uL (4.00-5.40); RDW 14.3 % (11.5-14.5); WBC 10.5 10x3/uL (4.8-10.8)
[2017-11-16 06:29] LABS: ALBUMIN 2.5 g/dL (3.4-5.0); ANION GAP 11.2 mmol/L (8-16); BILIRUBIN - TOTAL 0.42 mg/dL (0.2-1.3); CALCIUM 8.2 mg/dL (8.5-10.1); CREATININE - SERUM 1.2 mg/dL (0.6-1.3); POTASSIUM - SERUM 4.2 mmol/L (3.5-5.1); PROTEIN - SERUM 6.5 g/dL (6.4-8.2)
[2017-11-17] VITALS (24 sets, daily range): BP systolic 93–160; BP diastolic 43–74
[2017-11-17 06:20] LABS: HEMATOCRIT 32.4 % (36.0-48.0); HEMOGLOBIN 10.6 g/dL (12-16); MCH 32.3 pg (26.0-34.0); MCHC 32.7 g/dL (31.0-37.0); MCV 98.8 fL (80.0-100.0); MEAN PLATELET VOLUME 9.6 fL (7.4-10.4); RBC 3.28 10x6/uL (4.00-5.40); RDW 14.4 % (11.5-14.5); WBC 8.9 10x3/uL (4.8-10.8)
[2017-11-17 06:31] LABS: ALBUMIN 2.5 g/dL (3.4-5.0); ANION GAP 7.3 mmol/L (8-16); BILIRUBIN - TOTAL 0.39 mg/dL (0.2-1.3); CALCIUM 8.5 mg/dL (8.5-10.1); CARBON DIOXIDE 32.2 mmol/L (21.0-32.0); CREATININE - SERUM 1.1 mg/dL (0.6-1.3); POTASSIUM - SERUM 4.5 mmol/L (3.5-5.1); PROTEIN - SERUM 6.7 g/dL (6.4-8.2)
[2017-11-18] VITALS (10 sets, daily range): BP systolic 105–130; BP diastolic 37–51
[2017-11-18 06:15] LABS: HEMATOCRIT 29.7 % (36.0-48.0); HEMOGLOBIN 9.5 g/dL (12-16); MCH 31.7 pg (26.0-34.0); MEAN PLATELET VOLUME 9.4 fL (7.4-10.4); RDW 14.4 % (11.5-14.5); WBC 7.8 10x3/uL (4.8-10.8)
[2017-11-18 06:39] LABS: ALBUMIN 2.5 g/dL (3.4-5.0); ANION GAP 7.2 mmol/L (8-16); BILIRUBIN - TOTAL 0.4 mg/dL (0.2-1.3); CALCIUM 8.2 mg/dL (8.5-10.1); CARBON DIOXIDE 34.1 mmol/L (21.0-32.0); CREATININE - SERUM 1.3 mg/dL (0.6-1.3); POTASSIUM - SERUM 4.3 mmol/L (3.5-5.1); PROTEIN - SERUM 6.8 g/dL (6.4-8.2)
[2017-11-18] MEDS ORDERED: CORDARONE200 MG PO (10:38)
[2017-11-18] MEDS ORDERED: COLACE100 MG PO (10:39)
[2017-11-18] MEDS ORDERED: ASPIRIN81 MG PO (10:40)
[2017-11-18] MEDS ORDERED: LASIX40 MG PO (10:42)
[2017-11-18] MEDS ORDERED: K-DUR20 MEQ PO (10:42)
[2017-11-18] MEDS ORDERED: PERCOCET 5-3251 TAB PO (10:44)
== END 2017-11-18 13:32 | disposition home or self-care (01) | DRG 220 ==
LOC: D.CVICU 05:00 → D.SDCHOLD 05:00 → D.CVICU 11:37
PROVIDERS: Internal Medicine Cardiovascular Disease; Thoracic Surgery (Cardiothoracic Vascular Surgery)
PROC: 021009W Bypass Coronary Artery, One Artery from Aorta with Autologous Venous Tissue, Open Approach (ICD-10-PCS; 2017-11-08)
PROC: 06BP0ZZ Excision of Right Saphenous Vein, Open Approach (ICD-10-PCS; 2017-11-08)
PROC: 5A1221Z Performance of Cardiac Output, Continuous (ICD-10-PCS; 2017-11-08)
PROC: B24BZZ4 Ultrasonography of Heart with Aorta, Transesophageal (ICD-10-PCS; 2017-11-08)
PROC: 02100Z9 Bypass Coronary Artery, One Artery from Left Internal Mammary, Open Approach (ICD-10-PCS; principal; 2017-11-08 07:30)
PROC: 02RF08Z Replacement of Aortic Valve with Zooplastic Tissue, Open Approach (ICD-10-PCS; 2017-11-08 07:30)
PROC: 05HY33Z Insertion of Infusion Device into Upper Vein, Percutaneous Approach (ICD-10-PCS; 2017-11-11)
DX: I25.10 Atherosclerotic heart disease of native coronary artery without angina pectoris (principal); I48.1 Persistent atrial fibrillation; I35.0 Nonrheumatic aortic (valve) stenosis; I10 Essential (primary) hypertension; E78.5 Hyperlipidemia, unspecified

== ENCOUNTER → 2017-11-27 11:13 | Outpatient (CLI) | payer MEDICARE, OTHER ==
[2017-11-09 08:45] VITALS: BMI 35.2
[~2017-11-27 11:13] MED LIST changes: +ASPIRIN81 MG PO; +COLACE100 MG PO; +CORDARONE200 MG PO; +K-DUR20 MEQ PO; +LASIX40 MG PO; +PERCOCET 5-3251 TAB PO
[2017-11-27 12:01] LABS: ALBUMIN 2.9 g/dL (3.4-5.0); ANION GAP 11.2 mmol/L (8-16); BILIRUBIN - TOTAL 0.29 mg/dL (0.2-1.3); CALCIUM 8.4 mg/dL (8.5-10.1); CARBON DIOXIDE 29.5 mmol/L (21.0-32.0); CREATININE - SERUM 1.3 mg/dL (0.6-1.3); POTASSIUM - SERUM 4.7 mmol/L (3.5-5.1); PROTEIN - SERUM 7.1 g/dL (6.4-8.2)
[2017-11-27 12:11] LABS: PLT FUNCT.(P2Y12) PLAVIX 277 PRU (194-418)
== END | disposition home or self-care (01) ==
LOC: D.LAB 11:13
PROVIDERS: Thoracic Surgery (Cardiothoracic Vascular Surgery)
DX: I25.10 Atherosclerotic heart disease of native coronary artery without angina pectoris (principal); I35.0 Nonrheumatic aortic (valve) stenosis; J90 Pleural effusion, not elsewhere classified; D64.9 Anemia, unspecified

== ENCOUNTER → 2017-12-04 10:52 | Outpatient (CLI) | payer MEDICARE, OTHER ==
[2017-11-09 08:45] VITALS: BMI 35.2
== END | disposition home or self-care (01) ==
LOC: D.RAD 09:30
DX: D64.9 Anemia, unspecified (principal); J91.8 Pleural effusion in other conditions classified elsewhere

== ENCOUNTER 2017-12-05 05:30 | Day surgery (SDC) | payer MEDICARE, OTHER ==
[2017-12-04 12:34] LABS: HEMATOCRIT 29.2 % (36.0-48.0); HEMOGLOBIN 9.1 g/dL (12-16); MCH 31.2 pg (26.0-34.0); MCHC 31.2 g/dL (31.0-37.0); MEAN PLATELET VOLUME 9.6 fL (7.4-10.4); RBC 2.92 10x6/uL (4.00-5.40); RDW 14.5 % (11.5-14.5); WBC 6.8 10x3/uL (4.8-10.8)
[2017-12-04 12:47] LABS: ALBUMIN 2.9 g/dL (3.4-5.0); ANION GAP 11.8 mmol/L (8-16); BILIRUBIN - TOTAL 0.47 mg/dL (0.2-1.3); CALCIUM 8.8 mg/dL (8.5-10.1); CARBON DIOXIDE 31.5 mmol/L (21.0-32.0); CREATININE - SERUM 1.3 mg/dL (0.6-1.3); POTASSIUM - SERUM 4.3 mmol/L (3.5-5.1); PROTEIN - SERUM 7.5 g/dL (6.4-8.2)
[~2017-12-05] VITALS: Ht 167.6 cm; Wt 96.8 kg
--- NOTE | ~2017-12-05 | OP ---
PATIENT NAME: BRIANA LARA MEDICAL RECORD: [id number] :40 LOCATION:D.OPS ADMISSION DATE: SURGEON: ROBSON DAVID MD DATE OF OPERATION: 12/05/2017 SURGEON: Robson David MD BURIAL VAULT MAKER: RACHEAL Owens OPERATION PERFORMED. 1. Primary closure and irrigation of lower 1/4 of sternal wound. 2. Debridement of 2 right leg incisions. PREOPERATIVE DIAGNOSIS: Superficial wound dehiscence. POSTOPERATIVE DIAGNOSIS: Superficial wound dehiscence. ANESTHESIA: Monitored anesthesia care, 20 cc 1% Xylocaine with epinephrine. SPECIMENS: None. COMPLICATIONS: None. CONDITION: Stable. DISPOSITION: Same day surgery and home. FINDINGS: 1. Clean wound, closed primarily with vertical mattress sutures of nylon. 2. Eschar was debrided from the upper and lower incision to the right calf and no purulent drainage removed, a small corner of a 4 x 4 tucked into the lower part of the right leg. Drainage and instructions given to the . INDICATIONS: Several weeks after coronary bypass graft lower 1/4 of the chest incision is opened from the skin about a cm down to the subcutaneous tissue without drainage or infection. DESCRIPTION OF PROCEDURE: The patient was brought to the operating suite. Intravenous sedation was given. The chest was sterilely prepped and draped. A 1% Xylocaine used for local, irrigated with antibiotic irrigation and vertical mattress sutures of nylon were placed with good closure and the area was draped. Right leg eschars at the upper and lower leg incisions were debrided. No drainage was noted. The corner of a gauze was packed in the lower leg incision. Both were covered with 4 x 4s and wrapped lightly with a Kerlix dressing. The patient to recovery room in stable condition. TRANSINT:[id number] Voice Confirmation ID: [id number] DOCUMENT ID: [id number] OPERATIVE REPORT [id number] BRIANA LARA ROBSON DAVID MD at 1019 CC: [id number] DICTATION DATE: 12/05/17 1414 FOUNDRY MOLDER: 12/05/17 1424 [facility] 12/05/17 [place] [address]
[2017-12-05 06:28] VITALS: BP 132/69; Ht 167.6 cm; Wt 96.8 kg
== END 2017-12-05 09:52 | disposition home or self-care (01) ==
LOC: D.OPS 05:30
PROVIDERS: Thoracic Surgery (Cardiothoracic Vascular Surgery)
DX: T81.31XA Disruption of external operation (surgical) wound, not elsewhere classified, initial encounter (principal); Y83.8 Other surgical procedures as the cause of abnormal reaction of the patient, or of later complication, without mention of misadventure at the time of the procedure; I10 Essential (primary) hypertension; K21.9 Gastro-esophageal reflux disease without esophagitis; I25.10 Atherosclerotic heart disease of native coronary artery without angina pectoris; Z95.1 Presence of aortocoronary bypass graft; Z95.5 Presence of coronary angioplasty implant and graft; I35.0 Nonrheumatic aortic (valve) stenosis

== ENCOUNTER → 2017-12-26 10:32 | Outpatient (CLI) | payer MEDICARE, OTHER ==
[2017-12-05 06:28] VITALS: BMI 34.4
== END | disposition home or self-care (01) ==
LOC: D.LABREF 10:32
DX: T81.49XA Infection following a procedure, other surgical site, initial encounter (principal)

== ENCOUNTER 2018-12-08 08:00 | Outpatient (CLI) | payer MEDICARE, OTHER ==
[2017-12-05 06:28] VITALS: BMI 34.4
== END 2018-12-08 23:59 | disposition home or self-care (01) ==
LOC: D.MAMMO 08:00
PROVIDERS: ATTEND Family Medicine
DX: Z12.31 Encounter for screening mammogram for malignant neoplasm of breast (principal)

== ENCOUNTER → 2018-12-17 10:48 | Outpatient (CLI) | payer MEDICARE, OTHER ==
[2017-12-05 06:28] VITALS: BMI 34.4
== END | disposition home or self-care (01) ==
LOC: D.HCCECHO 10:48
PROVIDERS: ATTEND Internal Medicine Cardiovascular Disease
DX: I25.10 Atherosclerotic heart disease of native coronary artery without angina pectoris (principal)

== ENCOUNTER 2019-07-22 11:53 | Outpatient (CLI) | payer MEDICARE, OTHER ==
[~2019-07-22] VITALS: Ht 167.6 cm; Wt 89.5 kg
--- NOTE | ~2019-07-22 | HEMODYNAMI ---
PATIENT:BRIANA LARA MEDICAL RECORD: [id number] : 40 LOCATION:D.CAT ADMISSION DATE: 07/22/19 Generatedon:07/22/201913:23 Patient name: BRIANA LARA Patient #: [id number] SSN: : 1940 Date of study: 07/22/2019 Page: Of Hemodynamic Procedure Report Patient Data Patient Demographics Procedure consent was obtained First Name: BRIANA Gender: Female Last Name: MARCO : 1940 [facility] Initial: SHAI Age: 78 year(s) Patient #: [id number] Race: Additional ID: [id number] Contact details [address]: [address] [place] [address] [address] State: [place] City: [place] Zip code: [address] Past Medical History Allergies: No known allergies Admission Admission Data Admission Date: 07/22/2019 Admission Time: 11:53 Admit Source: Other Procedure Procedure Types Cath Procedure Diagnostic Procedure Cardioversion External Procedure Description Procedure Date Procedure Date: 07/22/2019 Procedure Start Time: 13:09 Procedure End Time: 13:18 Procedure Staff Name Function Aníbal Akbar MD Performing Physician Ashish Galeano RT Monitor Nicole Kunz RT Teaching Assistant Dylan Mckeon RN Nurse Gm Dixon CRNA Additional personnel Procedure Data Cath Procedure Fluoroscopy Diagnostic fluoroscopy Total fluoroscopy Time: 0 time: 0 min min Diagnostic fluoroscopy Total fluoroscopy dose: 0 dose: 0 mGy mGy Estimated blood loss: 0 ml Procedure Complications No complications Procedure Medications Medication Administration Route Dosage Oxygen etCO2 Nasal cannula 2 l/min Refer to Anesthesia Notes for Sedation Medications Hemodynamics Rest Heart Rate: 89 (bpm) Snapshots Pre Cath Intra NCS Post Cath Vital Signs Time Heart Resp SPO2 etCO2 NIBP (mmHg) Rhythm Pain Sedation Rate (ipm) (%) (mmHg) Status Level (bpm) 13:07:00 86 19 94 37.3 131/91(117) A-Fib 0 (11) 10(A) , No pain 13:11:16 108 15 98 36.5 120/79(84) A-Fib 0 (11) 9(A) , No pain 13:15:32 66 11 96 32.1 124/63(101) A-Fib 0 (11) 9(A) , No pain 13:16:41 66 12 96 41.8 117/62(98) A-Fib 0 (11) 10(A) , No pain Medications Time Medication Route Dose Verified Delivered Reason Notes Effective ness by by 13:07:26 Oxygen etCO2 2 Aníbalmickey Richardson used for Nasal l/min Raffy Mckeon RN procedure cannula 13:07:33 Refer to Aníbal Dylan Anesthesia Raffy Mckeon RN Notes for Sedation Medications Procedure Log Time Note 12::33 Informed consent obtained and on chart 12::33 Admit Source: Other 12:40:36 Procedure Status Cardioversion. 12:40:38 Time tracking: Regular hours (M-F 7:00 - 5:00) 12:40:41 Plan of Care:Hemodynamics will remain stable., Cardiac rhythm will remain stable., Comfort level will be maintained., Respiratory function will remain adequate., Patient/ family verbilizes understanding of procedure., Procedure tolerated without complication., Recovers from procedure without complications.. 12:43:19 H&P Date Dictated: 07/16/2019 Within 30 days and on chart., H&P Addendum completed by physician on day of procedure. (MUST COMPLETE FOR ALL OUTPATIENTS). 12:43:33 Patient NPO since Midnight. 12:43:42 Patient allergic to No known allergies 12:47:34 Dylan Mckeon RN sent for patient. Start room use. 12:54:25 Gm Dixon CRNA present and monitoring patient for TIVA. 13:01:14 Patient arrived from Pre/Post Procedure Room to CCL 1. Patient remains on bed/stretcher for procedure. 13:01:16 Warm blankets applied, and janine hugger turned on for patient comfort. 13:01:17 Correct patient and procedure confirmed by team. 13:01:19 ECG and BP/O2 sat monitors applied to patient. 13:01:19 Pre-procedure instructions explained to patient. 13:01:21 Pre-op teaching completed and patient verbalized understanding. 13:01:22 Family unavailable. 13:01:28 Is the patient allergic to Iodine/contrast media? No. 13:01:29 Is patient on blood thinner?Yes 13:01:33 ACC The patient was administered the following blood thiners within the last 24 hours: Xarelto 13:02:44 Patient diabetic? No. 13:02:51 Previous problem with sedation/anesthesia? No ? 13:02:57 Snore? No 13:02:58 Sleep apnea? No 13:02:58 Deviated septum? No 13:03:04 Opens mouth fully? Yes 13:03:05 Sticks out tongue? Yes 13:03:07 Airway obstruction? No ? 13:03:11 Dentures? No ? 13:03:33 Patient pain scale 0/10 ?. 13:03:44 IV patent on arrival in left forearm with 0.9% NaCl at [facility]. 13:05:54 Vital chart was started 13:05:55 Baseline sample Acquired. 13:06:00 Rhythm: atrial fibrillation 13:06:01 Full Disclosure recording started 13:06:35 Quick Combo opened to sterile field. 13:07:02 Quick combo pads placed on patients chest and back. 13:07:06 Physician arrived 13:07:07 --------ALL STOP TIME OUT------ 13:07:07 Final Timeout: patient, procedure, and site verified with staff and physician. All members of the team are in agreement. 13:07:12 Fire Safety Assessment: C--Open oxygen or nitrous oxide is being used. 13:07:15 Physical assessment completed. ASA score P 3 - A patient with severe systemic disease as per Aníbal Akbar MD. 13:07:21 Sedation plan: TIVA Medication:Propofol 13:07:26 Oxygen 2 l/min etCO2 Nasal cannula was administered by Dylan Mckeon RN; used for procedure; Verbal order read back and verified. 13:07:33 Refer to Anesthesia Notes for Sedation Medications was administered by Dylan Mckeon RN; ; Verbal order read back and verified. 13:09:09 Procedure started. 13:11:20 Defibrillator synced and charged to 200 Joules. 13:11:29 Shock delivered. 13:12:31 Patient cardioverted to sinus rhythm . 13:12:35 Procedure ended.(Physican Out) 13:13:07 Fluoroscopy time 00.00 minutes. 13:13:10 Flurop Dose total: 0 13:13:10 Fluoroscopy dose: 0 mGy 13:13:12 Dose Area Product 0 mGy/cm. 13:13:28 Post-procedure physical assessment completed. ASA score P 3 - A patient with severe systemic disease as per Aníbal Akbar MD. 13:13:37 Post procedure rhythm: sinus rhythm 13:14:06 Estimated blood loss: 0 ml 13:14:13 Post procedure instruction explained to patient.Patient verbalizes understanding. 13:14:14 Patient needs reinforcement of post procedure teaching. 13:14:27 Procedure and supply charges have been captured, reviewed, submitted and are correct. 13:14:29 Procedure Complication : No complications 13:18:09 Vital chart was stopped 13:18:14 Operative report dictated upon procedure completion. 13:18:14 See physician's report for complete and final results. 13:18:15 Report given to Pre/Post Procedure Room. 13:18:18 Patient transfered to Pre/Post Procedure Room with Stretcher. 13:18:20 Procedure ended. 13:18:20 Full Disclosure recording stopped 13:18:23 End room use (Document Last) Device Usage Item Manufacture Quantity Catalog Hospital Part Current Minimal Lot# / Name Number Charge Number Stock Stock Seri al# Code Gradalis 1 [id number] Combo Signature Audit [place] Stage Time Signature Unsigned Intra-Procedure 07/22/2019 Ashish Galeano 1:18:46 PM RT(R) Intra-Procedure 07/22/2019 Dylan Mckeon 1:22:06 PM RN; Aníbal Akbar MD [place] [phone]
[2019-07-22] MEDS ORDERED: LOVASTATIN40 MG PO (12:21)
[2019-07-22] MEDS ORDERED: CO Q-1030 MG PO (12:21)
[2019-07-22] MEDS ORDERED: GLUCOPHAGE500 MG PO (12:22)
[2019-07-22] MEDS ORDERED: BETAPACE 80 MG80 MG PO (12:22)
[2019-07-22] MEDS ORDERED: XARELTO15 MG PO (12:25)
[2019-07-22] MEDS ORDERED: PEPCID AC20 MG PO (12:27)
[2019-07-22 12:50] VITALS: BP 124/61; Ht 167.6 cm; Wt 89.5 kg
[2019-07-22 13:08] LABS: BASOPHILS 0.2 % (0-2); EOSINOPHILS 2.3 % (0-7); HEMATOCRIT 41.3 % (36.0-48.0); IMMATURE GRANULOCYTES 0.2 % (0-5); LYMPHOCYTES 27.9 % (15-50); MCHC 31.5 g/dL (31.0-37.0); MCV 98.3 fL (80.0-100.0); MONOCYTES 8.3 % (2-11); NEUTROPHILS 61.1 % (40-80); PLATELET COUNT 147 10x3/uL (130-400); RDW 13.8 % (11.5-14.5); WBC 6.6 10x3/uL (4.8-10.8)
[2019-07-22 13:17] LABS: INR 1.27 (0.85-1.17); PROTIME 15.8 SECONDS (11.6-15.0)
[2019-07-22 13:20] LABS: ANION GAP 10.5 mmol/L (8-16); CALCIUM 9.2 mg/dL (8.5-10.1); CARBON DIOXIDE 28.9 mmol/L (21.0-32.0); CREATININE - SERUM 0.9 mg/dL (0.6-1.3); POTASSIUM - SERUM 4.4 mmol/L (3.5-5.1)
--- NOTE | 2019-07-22 13:27 | NUR ---
PT ARRIVED BY STRETCHER. PLACED ON MONITORS. VSS AT THIS TIME. PT IN NSR. CALL LIGHT WITHIN REACH.
--- NOTE | 2019-07-22 13:43 | NUR ---
PT RESTING COMFORTABLY. VSS. PT IN NSR. HR 61. NO NEEDS AT THIS TIME. CALL LIGHT WITHIN REACH.
--- NOTE | 2019-07-22 14:15 | NUR ---
PT IN NSR ON MONITOR. HR 62. NO DISTRESS NOTED. ALERT AND ORIENTED X 4. PIV D/C'D WITH CATH TIP INTACT. TOLERATED WELL. DISCUSSED DISCHARGE INSTRUCTIONS WITH PT. SHE VOICED UNDERSTANDING. PT INSTRUCTED TO GET UP AND DRESSED AT THIS TIME.
--- NOTE | 2019-07-22 14:30 | NUR ---
PT AMBULATED TO RESTROOM. VOIDED WITHOUT DIFFICULTY. STEADY GAIT NOTED. PT TAKEN DOWN TO VEHICLE BY WHEELCHAIR. NO S/S OF DISTRESS NOTED. ALL BELONGINGS AND PAPERWORK IN HAND. CALLED ANN'S OFFICE FOR PT REGARDING MORE SAMPLES OF BLOOD THINNER. THEY WILL CALL HER AND LET HER KNOW WHEN TO PHARMACY DATA ANALYST FROM OFFICE. SHE REPORTS SHE HAS A WEEK SUPPLY LEFT AT THIS TIME.
== END 2019-07-22 14:30 | disposition home or self-care (01) ==
LOC: D.CATH 11:53
PROVIDERS: ATTEND Internal Medicine Cardiovascular Disease
DX: I48.91 Unspecified atrial fibrillation (principal); I25.10 Atherosclerotic heart disease of native coronary artery without angina pectoris; R00.2 Palpitations; Z95.4 Presence of other heart-valve replacement